=== PATIENT | female | born 2000 | race African-American/Black ===

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

== ENCOUNTER 2020-01-24 10:40 | Outpatient (CLI) | payer OTHER | END 2020-01-24 10:47 | disposition home or self-care (01) | LOC: RAD 10:40 | DX: S90.922A Unspecified superficial injury of left foot, initial encounter (principal) ==

== ENCOUNTER 2020-04-28 10:47 | Outpatient (CLI) | payer OTHER | END 2020-04-28 10:53 | disposition home or self-care (01) | LOC: LAB 10:47 | PROVIDERS: ATTEND Obstetrics & Gynecology | DX: Z11.3 Encounter for screening for infections with a predominantly sexual mode of transmission (principal) ==

== ENCOUNTER 2023-02-09 23:26 | Emergency (ER) | payer OTHER ==
[~2023-02-09] VITALS: Ht 154.9 cm; Wt 88.9 kg
[2023-02-09] MEDS ORDERED: CHILDREN'S5 MG/5 M1 (23:37)
== END 2023-02-10 | disposition home or self-care (01) ==
LOC: ER 23:26
DX: O26.899 Other specified pregnancy related conditions, unspecified trimester (principal); Z3A.00 Weeks of gestation of pregnancy not specified; Z37.9 Outcome of delivery, unspecified

== ENCOUNTER 2023-02-10 01:44 | Outpatient (CLI) | payer OTHER ==
[~2023-02-10 01:44] MED LIST changes: +CHILDREN'S5 MG/5 M1
== END 2023-02-10 10:21 | disposition home or self-care (01) ==
LOC: OBS/DEL 01:44
PROVIDERS: ATTEND Specialist
DX: O26.892 Other specified pregnancy related conditions, second trimester (principal); R10.2 Pelvic and perineal pain; Z3A.21 21 weeks gestation of pregnancy